=== PATIENT | female | born 1950 ===

== ENCOUNTER → 2017-11-26 | Outpatient (CLI) | payer MEDICARE, OTHER ==
[~2017-11-26] VITALS: Ht 160 cm; Wt 66.0 kg
[~2017-11-26] MED LIST: LOSA50TA37 PO
[2017-11-26 13:23] VITALS: BP 135/65
== END | disposition home or self-care (01) ==
LOC: SRCNTR 13:15
PROVIDERS: ATTEND Internal Medicine Critical Care Medicine
DX: R91.8 Other nonspecific abnormal finding of lung field (principal); I10 Essential (primary) hypertension
CPT/HCPCS: G0463

== ENCOUNTER → 2018-03-10 | Outpatient (CLI) | payer MEDICARE, OTHER ==
[~2018-03-10] VITALS: Ht 160 cm; Wt 70.4 kg
[~2018-03-10] MED LIST changes: -LOSA50TA37 PO; +LOSA50TA64 PO
[2018-03-10 13:50] VITALS: BP 162/90
== END | disposition home or self-care (01) ==
LOC: SRCNTR 13:20
PROVIDERS: ATTEND Internal Medicine Critical Care Medicine
DX: C34.92 Malignant neoplasm of unspecified part of left bronchus or lung (principal); I10 Essential (primary) hypertension
CPT/HCPCS: G0463

== ENCOUNTER → 2018-06-20 | Outpatient (CLI) | payer MEDICARE, OTHER ==
[~2018-06-20] VITALS: Ht 160 cm; Wt 70.0 kg
[~2018-06-20] MED LIST changes: +ASCO500 PO; +ASPI81 PO; +FOLI1 PO
[2018-06-20 14:46] VITALS: BP 136/80
== END | disposition home or self-care (01) ==
LOC: SRCNTR 14:26
PROVIDERS: ATTEND Internal Medicine Critical Care Medicine
DX: I10 Essential (primary) hypertension (principal)
CPT/HCPCS: G0463

== ENCOUNTER → 2021-03-30 | Outpatient (CLI) | payer MEDICARE, OTHER ==
[~2021-03-30] VITALS: Ht 154.9 cm; Wt 65.0 kg
[~2021-03-30] MED LIST changes: +ASPI-1450 PO; -ASPI81 PO; +CHOL500013 PO; +FOLI-130 PO; -FOLI1 PO; +LOSA50TA37 PO; -LOSA50TA64 PO; +ZINC220C14 PO
[2021-03-30 10:22] VITALS: BP 112/68
== END | disposition home or self-care (01) ==
LOC: SRCNTR 10:03
PROVIDERS: ATTEND Internal Medicine Critical Care Medicine
DX: I10 Essential (primary) hypertension (principal)
CPT/HCPCS: G0463

== ENCOUNTER → 2021-07-18 | Outpatient (CLI) | payer MEDICARE, OTHER ==
[~2021-07-18] VITALS: Ht 160 cm; Wt 63.8 kg
[~2021-07-18] MED LIST changes: +LOSA-382 PO; -LOSA50TA37 PO
[2021-07-18 11:23] VITALS: BP 117/65
== END | disposition home or self-care (01) ==
LOC: SRCNTR 10:12
PROVIDERS: ATTEND Internal Medicine Critical Care Medicine
DX: I10 Essential (primary) hypertension (principal); C34.90 Malignant neoplasm of unspecified part of unspecified bronchus or lung
CPT/HCPCS: G0463